=== PATIENT | female | born 1985 | race American Indian/Alaskan Native ===

== ENCOUNTER 2017-07-30 12:08 | Outpatient (CLI) | payer BC, MEDICAID ==
[2017-07-30 13:04] LABS: Bacteria,Urine 1+ /HPF (Negative); Bilirubin,Urine NEG (Negative); Blood,Urine NEG (Negative); Color,Urine Yellow (Yellow); Mucus,Urine FEW /HPF; Protein,Urine <15 mg/dL mg/dL (Negative)
[2017-08-01 12:05] VITALS: BP 89/51
== END 2017-07-30 13:48 | disposition home or self-care (01) ==
LOC: TRG 12:08
PROVIDERS: ATTEND Obstetrics & Gynecology
DX: O47.02 False labor before 37 completed weeks of gestation, second trimester (principal); Z3A.26 26 weeks gestation of pregnancy
CPT/HCPCS: 59025; 81001

== ENCOUNTER 2017-09-20 13:26 | Outpatient (CLI) | payer BC, MEDICAID ==
[2017-09-20] MEDS ORDERED: LACTATED RINGERS 1,000 ML ONE (14:00)
[2017-09-20] MEDS ORDERED: LACTATED RINGERS 500 ML IV ONE (14:10)
[2017-09-20] MEDS ORDERED: ZOFRAN IV ONE (14:16)
[2017-09-20 14:43] VITALS: BP 122/75
[2017-09-20 15:00] LABS: Bacteria,Urine 3+ /HPF (Negative); Bilirubin,Urine NEG (Negative); Blood,Urine SM (Negative); Color,Urine Yellow (Yellow); Mucus,Urine FEW /HPF; Protein,Urine <15 mg/dL mg/dL (Negative); Urobilinogen,Urine < 2.0 mg/dL (<2.0)
[2017-09-20] MEDS ORDERED: LACTATED RINGERS 1,000 ML IV SCH (15:00)
[2017-09-20] MEDS ORDERED: BRETHINE SUB-Q SCH (16:00)
== END 2017-09-20 15:59 | disposition home or self-care (01) ==
LOC: TRG 13:26
PROVIDERS: ATTEND Obstetrics & Gynecology
DX: O47.03 False labor before 37 completed weeks of gestation, third trimester (principal); Z3A.33 33 weeks gestation of pregnancy
CPT/HCPCS: 59025; 81001; 96360; 96361; J2405; J3105; J7120

== ENCOUNTER 2017-11-03 17:50 | Inpatient (IN) | payer BC, MEDICAID ==
[2017-11-03 19:17] LABS: Basophils % (Auto) 0.1 % (0.0-1.8); Eosinophils # (Auto) 0.1 K/mm3 (0.0-0.4); Eosinophils % (Auto) 1.2 % (0.0-4.3); Hematocrit 32.9 % (30.3-42.9); Hemoglobin 10.8 gm/dl (10.1-14.3); Lymphocytes # (Auto) 2.7 K/mm3 (1.2-5.4); Lymphocytes % (Auto) 30.4 % (13.4-35.0); Mean Corpuscular HGB Conc 33 % (30-34); Mean Corpuscular Hemoglobin 27 pg (28-32); Mean Corpuscular Volume 84 fl (79-97); Monocytes # (Auto) 0.5 K/mm3 (0.0-0.8); Monocytes % (Auto) 5.4 % (0.0-7.3); Platelet Count 281 K/mm3 (140-440); Red Blood Count 3.94 M/mm3 (3.65-5.03); Red Cell Distribution Width 14.7 % (13.2-15.2)
[2017-11-03 19:35] LABS: Alanine Aminotransferase 70 units/L (7-56); Albumin 3.1 g/dL (3.9-5); BUN/Creatinine Ratio 22; Blood Urea Nitrogen 11 mg/dL (7-17); Calcium 8.9 mg/dL (8.4-10.2); Hemolysis Index 12
[2017-11-03] MEDS ORDERED: NORMODYNE IV ONE (21:49)
[2017-11-03 21:51] LABS: Bilirubin,Urine NEG (Negative); Blood,Urine LG (Negative); Color,Urine Yellow (Yellow); Mucus,Urine FEW /HPF; Protein,Urine <15 mg/dL mg/dL (Negative); Urobilinogen,Urine < 2.0 mg/dL (<2.0)
--- NOTE | 2017-11-03 22:03 | Emergency Department Report ---
HPI - General Chief Complaint: High BP Time Seen by Provider: 11/03/17 21:41 - HPI HPI: Room 25 The patient is a 32-year-old female presenting with a chief complaint of hypertension. The patient states she is 6 days from a performed at [facility]. The patient states today she went for her one-week checkup and oriented visit she was found to be hypertensive with protein in her urine. The patient was subsequently sent to the ED for evaluation out of concern for preeclampsia. The patient states she has noticed her feet and began swelling for 1 day. Patient denies any complaints and states that she feels okay. Patient denies any history of fever Location: [See above] Duration: [See above] Quality: Hypertension Severity: Moderate Modifying factors: [see above] Context: [see above] Mode of transportation: [not driving] ED Past Medical Hx - Surgical History Additional Surgical History: - Family History Family history: no significant - Social History Smoking Status: Former Smoker (none 9 months) Substance Use Type: None (denies illicit drug use), Alcohol (occasional) - Medications Home Medications: Home Medications Medication Instructions Recorded Confirmed Last Taken Type Pnv,Calcium 72/Iron/Folic Acid 1 each PO QDAY #30 tablet 05/02/15 07/30/17 Unknown Rx [ Vitamin with Low Iron] ED Review of Systems ROS: Stated complaint: HIGH BP Other details as noted in HPI Constitutional: denies: fever Eyes: denies: eye pain ENT: denies: throat pain Cardiovascular: denies: chest pain Gastrointestinal: other (expected postop pain) Genitourinary: denies: dysuria Musculoskeletal: back pain Neurological: denies: headache Physical Exam - Physical Exam Vital Signs: Vital Signs 11/03/17 18:24 Temperature 98.4 F Pulse Rate 76 Respiratory 18 Rate Blood Pressure 180/93 O2 Sat by Pulse 99 Oximetry Physical Exam: GENERAL: The patient is well-developed well-nourished female lying on stretcher not appearing to be in acute distress. [] HEENT: Normocephalic. Atraumatic. Extraocular motions are intact. Patient has moist mucous membranes. NECK: Supple. Trachea midline CHEST/LUNGS: Clear to auscultation. There is no respiratory distress noted. HEART/CARDIOVASCULAR: Regular. There is no tachycardia. There is no gallop rub or murmur. ABDOMEN: Abdomen is soft, with appropriate postop tenderness. Patient has normal bowel sounds. There is no abdominal distention. SKIN: There is no rash. There is trace bilateral lower extremity pretibial and pedal edema. There is no diaphoresis. NEURO: The patient is awake, alert, and oriented. The patient is cooperative. Cranial nerves II through XII grossly intact. There are no focal neurologic deficits. The patient has normal speech MUSCULOSKELETAL: There is no evidence of acute injury. ED Course Vital Signs 11/03/17 18:24 Temperature 98.4 F Pulse Rate 76 Respiratory 18 Rate Blood Pressure 180/93 O2 Sat by Pulse 99 Oximetry - Consultations Consultation #1: 11/03/17 21:57 Cummings arrested to page Dr[address] Charlie Bell ORTHO TECH 11/03/17 22:[address] Bell. Will admit ED Medical Decision Making - Lab Data Result diagrams: 11/03/17 18:39 11/03/17 18:39 Laboratory Tests 11/03/17 11/03/17 11/03/17 18:39 18:39 21:15 WBC 9.0 RBC 3.94 Hgb 10.8 Hct 32.9 MCV 84 MCH 27 L MCHC 33 RDW 14.7 Plt Count 281 Lymph % (Auto) 30.4 Schley % (Auto) 5.4 Eos % (Auto) 1.2 Baso % (Auto) 0.1 Lymph # 2.7 Schley # 0.5 Eos # 0.1 Baso # 0.0 Seg Neutrophils % 62.9 Seg Neutrophils # 5.7 Sodium 138 Potassium 4.4 Chloride 103.0 Carbon Dioxide 23 Anion Gap 16 BUN 11 Creatinine 0.5 L Estimated GFR > 60 BUN/Creatinine Ratio 22 Glucose 79 Calcium 8.9 Total Bilirubin 0.20 AST 30 ALT 70 H Alkaline Phosphatase 109 Total Protein 6.2 L Albumin 3.1 L Albumin/Globulin Ratio 1.0 Urine Color Yellow Urine Turbidity Clear Urine pH 7.0 Ur Specific [place] 1.017 Urine Protein <15 mg/dl Urine Glucose (UA) Neg Urine Ketones Neg Urine Blood Lg Urine Nitrite Neg Urine Bilirubin Neg Urine Urobilinogen < 2.0 Ur Leukocyte Esterase Neg Urine WBC (Auto) 4.0 Urine RBC (Auto) 13.0 U Epithel Cells (Auto) 2.0 Urine Mucus Few Critical care attestation.: If time is entered above; I have spent that time in minutes in the direct care of this critically ill patient, excluding procedure time. ED Disposition Clinical Impression: Preeclampsia Disposition: DC-09 OP ADMIT IP TO THIS HOSP Is pt being admited?: Yes Does the pt Need Aspirin: No Condition: Serious Instructions: Hypertension (ED) Referrals: PRIMARY CARE, [Primary Care Provider] - 3-5 Days Time of Disposition: 22:41
[2017-11-03] MEDS ORDERED: MAGNESIUM SULFATE 4GM/100ML 4 GM/100 ML BAG IV ONE (22:41)
--- NOTE | 2017-11-04 09:00 | Short Stay Summary ---
Short Stay Documentation Date of service: 11/04/17 Narrative H&P: The patient is a 32-year-old black female presents to [facility] ER with a chief complaint of hypertension. She is 6 days from a performed at [facility], and she went for her one-week checkup at the office and was found to be hypertensive with protein in her urine. She was subsequently sent to the ED for evaluation out of concern for preeclampsia. She has noticed her feet began swelling yesterday, but denies any complaints of headaches or blurred vision. - History Principal diagnosis: Post preeclampsia Past Medical History: No medical history Past Surgical History: Social history: no significant social history - Allergies and Medications Current Medications: Allergies No Known Allergies Allergy (Unverified 05/01/15 21:25) Home Medications Medication Instructions Recorded Confirmed Last Taken Type Pnv,Calcium 72/Iron/Folic Acid 1 each PO QDAY #30 tablet 05/02/15 07/30/17 Unknown Rx [ Vitamin with Low Iron] Active Medications Acetaminophen (Tylenol) 650 mg PO Q4H PRN PRN Reason: Pain MILD(1-3)/Fever >100.5/BARNES Docusate Sodium (Colace) 100 mg PO Q12H PRN PRN Reason: Constipation Magnesium Sulfate (Magnesium Sulfate 40gm/1000ml) 40 gm in 1,000 mls @ 50 mls/ hr IV DIRECT ARAMIS Labetalol HCl (Normodyne) 200 mg PO BID ARAMIS Magnesium Hydroxide (Milk Of Magnesia) 30 ml PO QHS PRN PRN Reason: Laxative Effect Multivitamins/Iron/Calcium ( Vitamin) 1 each PO QDAY ARAMIS Ondansetron HCl (Zofran) 4 mg IV Q6H PRN PRN Reason: Nausea And Vomiting - Physical exam General appearance: no acute distress Integumentary: no rash HEENT: Atraumatic Lungs: Clear to auscultation Breasts: deferred Heart: Regular rate Gastrointestinal: normal, other (Incision - clean, dry and intact with luis) Female Genitourinary: deferred Extremities: no ischemia Neurological: Normal speech - Hospital course Hospital course: Unremarkable. Pt was admitted and started on IV Magnesium sulfate and IV hydralazine for BP control. She was switched to PO Labetolol 200mg BID and BP' s improved. She is currently stable on Labetolol 200mg BID without complaints. She will therefore be discharged to home on Labetolol 200mg BID and follow up in 1 week in the office for BP check. - Disposition Condition at discharge: Good Disposition: DC-01 TO HOME OR SELFCARE Short Stay Discharge Plan Activity: no restrictions Diet: regular Wound: open to air, keep clean and dry Follow up with: PRIMARY CARE, [Referring] - 3-5 Days PARUL OLIVEIRA NP [Referring] - 7 Days Prescriptions: Labetalol [Normodyne TAB] 200 mg PO BID #60 tablet
[2017-11-04] MEDS ORDERED: TYLENOL PO PRN (09:30)
[2017-11-04] MEDS ORDERED: LACTATED RINGERS 1,000 ML ONE (09:30)
[2017-11-04] MEDS: NORMODYNE PO SCH ×2 (09:48→21:51)
[2017-11-04] MEDS: PRENATAL VITAMIN PO SCH (09:48)
[2017-11-04] MEDS ORDERED: COLACE PO PRN (10:00)
[2017-11-04] MEDS ORDERED: MAGNESIUM SULFATE 40GM/1000ML 40 GM/1,000 ML BAG IV SCH (10:00)
[2017-11-04] MEDS ORDERED: ZOFRAN IV PRN (10:00)
[2017-11-04] MEDS ORDERED: LACTATED RINGERS 1,000 ML IV SCH (10:00)
[2017-11-04] MEDS ORDERED: MILK OF MAGNESIA PO PRN (22:00)
--- NOTE | 2017-11-05 09:20 | Progress Note ---
Assessment and Plan - Patient Problems (1) Preeclampsia Onset Date: 11/05/17 Current Visit: Yes Status: Resolved Qualifiers: Trimester: unspecified trimester Qualified Code(s): O14.90 - Unspecified pre-eclampsia, unspecified trimester Plan to address problem: A: Post preeclampsia - improved on IV Magnesium sulfate and PO Labetolol P: Probable May go home today D/C [place] and add steristrips Subjective - Subjective Date of service: 11/05/17 Principal diagnosis: Post preeclampsia Interval history: Pt is feeling well without complaints. Patient reports: appetite normal, voiding normally, dizzy ambulation, flatus, ambulating normally Objective - Vital Signs Latest vital signs: Vital Signs Temp Pulse Pulse Resp BP BP Pulse Ox 11/05/17 08:38 67 18 11/05/17 08:30 67 18 150/91 11/05/17 04:00 77 F L 89 18 131/78 11/05/17 00:00 98.6 F 78 16 138/79 11/04/17 21:51 79 149/92 11/04/17 19:30 98.6 F 71 16 143/89 11/04/17 18:12 98.8 F 70 20 145/83 95 11/04/17 16:18 98.5 F 76 20 137/72 94 11/04/17 14:00 98.7 F 74 20 146/86 97 11/04/17 12:14 98.6 F 73 20 136/76 96 11/04/17 09:49 20 Intake and Output 11/04/17 11/05/17 11/05/17 22:59 06:59 14:59 Intake Total 540 300 Output Total 1300 1200 Balance -760 300 -1200 Intake: Oral 240 Intake, Free Water 300 300 Output: Urine 1300 1200 Indwelling Catheter 1300 1200 Other: Total, Intake Amount 240 Total, Output Amount 1300 200 Voiding Method Indwelling Catheter Indwelling Catheter - Exam Breasts: Present: mass Lungs: Present: Clear to auscultation Abdomen: Present: normal appearance Extremities: Present: normal Incision: Present: normal, dry, intact - Labs Labs: Abnormal lab results 11/04/17 11/05/17 Range/Units 22:34 06:57 Magnesium 3.30 H 4.70 H (1.7-2.3) mg/dL
[2017-11-05] MEDS: NORMODYNE PO SCH (10:06)
[2017-11-05] MEDS: PRENATAL VITAMIN PO SCH (10:07)
[2017-11-05 11:43] VITALS: BP 153/88
== END 2017-11-05 14:41 | disposition home or self-care (01) | DRG 776 ==
LOC: ED 17:50 → OB 11-04 02:57
PROVIDERS: ADMIT Obstetrics & Gynecology; ATTEND Obstetrics & Gynecology
DX: O14.95 Unspecified pre-eclampsia, complicating the puerperium (principal)
CPT/HCPCS: 36415; 80053; 81001; 83735; 85025; 99211; G0463; J3475; J7120

== ENCOUNTER 2021-08-13 15:43 | Outpatient (CLI) | payer MEDICAID, OTHER ==
[2021-08-13] MEDS ORDERED: LACTATED RINGERS 1,000 ML IV ONE (20:00)
--- NOTE | 2021-08-13 21:03 | Ultrasound Report ---
ULTRASOUND OBSTETRIC LIMITED INDICATION / CLINICAL INFORMATION: Placenta Position. well being. Clinical Gestational Age (GA) in weeks, days: 33 weeks 4 days TECHNIQUE: Transabdominal. COMPARISON: None available. FINDINGS: HEART RATE (beats per minute): 126 PRESENTATION: Cephalic. ADDITIONAL FINDINGS: Grade 3 placenta which is anterior in location. BREATHING MOVEMENT = 2 GROSS BODY MOVEMENT = 2 TONE = 2 QUALITATIVE AMNIOTIC FLUID VOLUME = 2 TOTAL BIOPHYSICAL SCORE = 8/8 IMPRESSION: 1. Biophysical Score = 8/8 2. No evidence of placental abruption. Placenta is anterior in location. Signer Name: Mg Schumacher MD Signed: 08/13/2021 8:59 PM Workstation Name: [id number]
[2021-08-13 21:06] LABS: Bilirubin,Urine NEG (Negative); Blood,Urine SM (Negative); Calcium Oxalate Crystals,Urine 2+; Color,Urine Yellow (Yellow); Mucus,Urine FEW /HPF; Protein,Urine <15 mg/dL mg/dL (Negative); Urobilinogen,Urine < 2.0 mg/dL (<2.0)
[2021-08-14 00:12] VITALS: BP 118/69
[2021-08-14] MEDS ORDERED: TERBUTALINE 1 MG/1 ML INJ SUB-Q ONE (01:33)
== END 2021-08-14 00:28 | disposition home or self-care (01) ==
LOC: TRG 15:43 → APU 16:07 → TRG 08-14 00:28
PROVIDERS: ATTEND Obstetrics & Gynecology
DX: Z34.93 Encounter for supervision of normal pregnancy, unspecified, third trimester (principal); Z3A.33 33 weeks gestation of pregnancy
CPT/HCPCS: 76815; 76819; 81001